=== PATIENT | female | born 2000 | race Caucasian/White ===

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

== ENCOUNTER → 2020-01-23 | Outpatient (CLI) | payer SELFPAY ==
[~2020-01-23] MED LIST changes: +VIST50CA PO
== END ==
LOC: M LABSMTC 09:27
PROVIDERS: ATTEND Pediatrics
DX: Z20.828 Contact with and (suspected) exposure to other viral communicable diseases (principal)

== ENCOUNTER → 2020-04-21 | Outpatient (CLI) | payer OTHER ==
[2020-04-21 15:29] LABS: HEMATOCRIT 36.4 % (36.0-47.0)
[2020-04-21 15:31] LABS: BASO # 0.1 10^3/uL (0.0-0.2); BASO % 0.9 % (0.0-1.0); EOS # 0.2 10^3/uL (0.0-0.5); EOS % 2.7 % (0.0-3.0); HEMATOCRIT 36.6 % (36.0-47.0); HEMOGLOBIN 12.1 g/dl (12.0-15.5); LYMPH # 2.1 10^3/uL (1.5-5.0); LYMPH % 31.3 % (24.0-44.0); MEAN CORPUSCULAR HEMOGLOBIN 30.6 pg (27.0-33.0); MEAN CORPUSCULAR HGB CONC 33.1 g/dl (32.0-36.5); MEAN CORPUSCULAR VOLUME 92.4 fl (80.0-96.0); MONO # 0.4 10^3/uL (0.0-0.8); MONO % 6.1 % (0.0-5.0); NEUTROPHILS # 3.9 10^3/uL (1.5-8.5); NEUTROPHILS % 58.8 % (36.0-66.0); PLATELET COUNT, AUTOMATED 228 10^3/uL (150-450); RED BLOOD COUNT 3.96 10^6/uL (4.00-5.40); WHITE BLOOD COUNT 6.6 10^3/uL (4.0-10.0)
[2020-04-21 15:47] LABS: HEMOGLOBIN A1c 4.9 %
[2020-04-21 16:03] LABS: CHOLESTEROL RISK RATIO 2.084 (<5)
--- NOTE | 2020-04-21 17:11 | REP ---
INDICATION: RIGHT CERVICAL LYMPHADENOPATHY COMPARISON: None. TECHNIQUE: PA/Lateral FINDINGS: Lungs: Clear, no infiltrate. Heart: Normal in size. Mediastinum: Mediastinal silhouette unremarkable. Pleural angles: Unremarkable.. Bones and soft tissues: Unremarkable. IMPRESSION: No acute pulmonary disease. <Electronically signed by Aries De La Cruz > 04/21/20 [id number]
--- NOTE | 2020-04-21 17:14 | REP ---
INDICATION: RIGHT CERVICAL LYPMPHADENOPATHY. COMPARISON: None. TECHNIQUE: Targeted soft tissue sonography of the right neck. FINDINGS: Scanning in the area the palpable abnormality in the right neck demonstrates a clustering of hypertrophied lymph nodes. Three lymph nodes are seen measures follows: 1.5 x 0.5 x 1.1, 1.5 x 0.5 x 1.2, and 1.0 by 0.7 x 1.2 cm respectively. These nodes are rather hypoechoic with cortical hypertrophy. IMPRESSION: Right cervical lymphadenopathy with a grouping of abnormal appearing hypertrophied lymph nodes. Depending on patient's clinical presentation, ultrasound-guided fine needle aspiration biopsy could be considered. Soft tissue neck CT study may provide more complete assessment of cervical lymph nodes. <Electronically signed by Galo Randle > 04/21/20 [id number]
== END ==
LOC: M RAD 14:50
PROVIDERS: ATTEND Physician Assistant Medical
DX: Z13.1 Encounter for screening for diabetes mellitus (principal); Z13.220 Encounter for screening for lipoid disorders; D64.9 Anemia, unspecified; R59.0 Localized enlarged lymph nodes

== ENCOUNTER → 2020-04-29 | Outpatient (CLI) | payer OTHER ==
--- NOTE | 2020-04-29 09:11 | REPVR ---
PROCEDURE INFORMATION: Exam: CT Neck Without Contrast Exam date and time: 04/29/2020 8:21 AM Age: 19 years old Clinical indication: Abnormal findings; Abnormal thyroid scan; Patient HX: PT denies TECHNIQUE: Imaging protocol: Computed tomography images of the neck without contrast. Radiation optimization: All CT scans at this facility use at least one of these dose optimization techniques: automated exposure control; mA and/or kV adjustment per patient size (includes targeted exams where dose is matched to clinical indication); or iterative reconstruction. COMPARISON: Thyroid, ST head+neck US 04/21/2020 3:32 PM FINDINGS: Nasopharynx: Unremarkable. Dental: Metallic beam hardening artifact from dental hardware limits evaluation in this region. Oropharynx: Unremarkable. No significant tonsillar enlargement. Hypopharynx: Unremarkable. Larynx: Unremarkable. Normal epiglottis. Retropharyngeal space: Unremarkable. Submandibular/Parotid glands: Normal. Glands are normal in size. Thyroid: Normal. No enlarged or calcified nodules. Lymph nodes: Examination again demonstrates a cluster of enlarged lymph nodes in the right supraclavicular region with the largest 1.7 x 1.2 x 0.7 cm in dimensions. Mildly enlarged level 1, level 2 and level 3 lymph nodes are also noted in the neck bilaterally. These are nonspecific and most likely reactive in etiology. The differential would include infectious mononucleosis, chronic infection, sarcoid, lymphoma and metastasis. Ultrasound-guided biopsy may be considered for further evaluation. Trachea: Visualized trachea is unremarkable. Lungs: Unremarkable as visualized. Bones/joints: The study is limited due to lack of intravenous contrast. Soft tissues: See "Lymph nodes" finding. IMPRESSION: 1. The study is limited due to lack of intravenous contrast. 2. Examination again demonstrates a cluster of enlarged lymph nodes in the right supraclavicular region with the largest 1.7 x 1.2 x 0.7 cm in dimensions. Mildly enlarged level 1, level 2 and level 3 lymph nodes are also noted in the neck bilaterally. These are nonspecific and most likely reactive in etiology. The differential would include infectious mononucleosis, chronic infection, sarcoid, lymphoma and metastasis. Ultrasound-guided biopsy may be considered for further evaluation. Electronically signed by: Irwin Henley On 04/29/2020 08:55:43 AM
== END ==
LOC: M RAD 08:11
PROVIDERS: ATTEND Physician Assistant Medical
DX: R59.0 Localized enlarged lymph nodes (principal)

== ENCOUNTER → 2020-05-10 | Outpatient (CLI) | payer OTHER ==
[~2020-05-10] MED LIST changes: +LIDOCAINE 1% MDV 20ML VIAL As Ordered ONE; +SODIUM BICARBONATE 8.4% INJ 50MEQ 50 ML VIAL As Ordered ONE
[2020-05-10 13:31] VITALS: BP 116/77
--- NOTE | 2020-05-10 16:53 | REP ---
INDICATION: LYMPHADENOPATHY OF RT CERVICAL REGION. COMPARISON: None. TECHNIQUE: The procedure was performed by Yesi Cortes [facility], under the direct supervision of Dr. De La Cruz. The risks and benefits of the procedure were explained to the patient and an informed consent was obtained both verbally and written. Directly prior to the start of the procedure a formal time-out was completed in the procedure room. FINDINGS: Using ultrasound guidance the cluster of supraclavicular lymph nodes that are palpable in the right neck were localized. The skin was prepped and draped in a sterile fashion. Five mL of buffered lidocaine was used as a local anesthetic. Using ultrasound guidance 8 fine needle aspirations were obtained using 25 gauge needles. Four specimens were sent to our lab here, and remaining 4 were sent out in RPMI solution, for further testing. The patient tolerated the procedure well and there were no immediate complications. After the appropriate amount of monitored convalescence the patient was discharged from the department. IMPRESSION: 1. Ultrasound-guided right supraclavicular lymph node biopsy. <Electronically signed by Yesi Cortes > 05/10/20 1400 <Electronically signed by Aries De La Cruz > 05/10/20 [id number]
== END ==
LOC: M IRPRO 12:37
PROVIDERS: ATTEND Physician Assistant Medical
DX: R59.0 Localized enlarged lymph nodes (principal)

== ENCOUNTER → 2020-05-11 | Outpatient (REF) | payer OTHER ==
[~2020-05-11] MED LIST changes: -LIDOCAINE 1% MDV 20ML VIAL As Ordered ONE; -SODIUM BICARBONATE 8.4% INJ 50MEQ 50 ML VIAL As Ordered ONE
[2020-05-11 17:39] LABS: BASO # 0.1 10^3/uL (0.0-0.2); EOS # 0.1 10^3/uL (0.0-0.5); EOS % 2.7 % (0.0-3.0); HEMOGLOBIN 12.6 g/dl (12.0-15.5); LYMPH # 1.8 10^3/uL (1.5-5.0); LYMPH % 33.9 % (24.0-44.0); MEAN CORPUSCULAR HEMOGLOBIN 30.1 pg (27.0-33.0); MEAN CORPUSCULAR HGB CONC 31.5 g/dl (32.0-36.5); MEAN CORPUSCULAR VOLUME 95.7 fl (80.0-96.0); MONO # 0.4 10^3/uL (0.0-0.8); MONO % 7.7 % (2.0-8.0); NEUTROPHILS # 2.8 10^3/uL (1.5-8.5); NEUTROPHILS % 54.3 % (36.0-66.0); PLATELET COUNT, AUTOMATED 247 10^3/uL (150-450); RED BLOOD COUNT 4.18 10^6/uL (4.00-5.40); WHITE BLOOD COUNT 5.2 10^3/uL (4.0-10.0)
[2020-05-11 18:12] LABS: ERYTHROCYTE SEDIMENTATION RATE 58 mm/hr (0-20)
== END ==
LOC: M SFHCPLAZ 14:48
PROVIDERS: ATTEND Physician Assistant Medical
DX: R59.0 Localized enlarged lymph nodes (principal)

== ENCOUNTER → 2020-05-19 | Outpatient (REF) | payer OTHER ==
[2020-05-19 13:19] LABS: C REACTIVE PROTEIN QUANTITATIV < 0.30 MG/DL (0.00-0.30)
[2020-05-19 13:23] LABS: MONO SCRN NEGATIVE (NEGATIVE)
== END ==
LOC: M SFHCPLAZ 11:36
PROVIDERS: ATTEND Physician Assistant Medical
DX: R59.0 Localized enlarged lymph nodes (principal)

== ENCOUNTER → 2020-07-08 | Outpatient (REF) | payer OTHER ==
[2020-07-08 14:09] LABS: BASO # 0.1 10^3/uL (0.0-0.2); BASO % 0.8 % (0.0-1.0); EOS # 0.2 10^3/uL (0.0-0.5); EOS % 2.9 % (0.0-3.0); HEMOGLOBIN 13.6 g/dl (12.0-15.5); LYMPH # 1.8 10^3/uL (1.5-5.0); LYMPH % 28.7 % (24.0-44.0); MEAN CORPUSCULAR HEMOGLOBIN 30.6 pg (27.0-33.0); MEAN CORPUSCULAR HGB CONC 32.4 g/dl (32.0-36.5); MEAN CORPUSCULAR VOLUME 94.6 fl (80.0-96.0); MONO # 0.4 10^3/uL (0.0-0.8); MONO % 5.6 % (2.0-8.0); NEUTROPHILS # 3.8 10^3/uL (1.5-8.5); NEUTROPHILS % 61.7 % (36.0-66.0); PLATELET COUNT, AUTOMATED 220 10^3/uL (150-450); RED BLOOD COUNT 4.44 10^6/uL (4.00-5.40); WHITE BLOOD COUNT 6.2 10^3/uL (4.0-10.0)
[2020-07-08 14:41] LABS: ERYTHROCYTE SEDIMENTATION RATE 12 mm/hr (0-20)
[2020-07-08 15:20] LABS: HIV 1&2 SCREEN CENTAUR NEGATIVE (NEGATIVE)
== END ==
LOC: M PLALAB 12:50
PROVIDERS: ATTEND Physician Assistant Medical
DX: R59.0 Localized enlarged lymph nodes (principal)

== ENCOUNTER → 2021-06-28 | Outpatient (CLI) | payer OTHER ==
[2021-06-28 13:17] LABS: BASO # 0.1 10^3/uL (0.0-0.2); BASO % 0.8 % (0.0-1.0); EOS # 0.1 10^3/uL (0.0-0.5); EOS % 1.7 % (0.0-3.0); HEMATOCRIT 40.8 % (36.0-47.0); HEMOGLOBIN 13.3 g/dl (12.0-15.5); LYMPH # 2.2 10^3/uL (1.5-5.0); LYMPH % 33.2 % (24.0-44.0); MEAN CORPUSCULAR HEMOGLOBIN 30.9 pg (27.0-33.0); MEAN CORPUSCULAR HGB CONC 32.6 g/dl (32.0-36.5); MEAN CORPUSCULAR VOLUME 94.7 fl (80.0-96.0); MONO # 0.5 10^3/uL (0.0-0.8); MONO % 7.7 % (2.0-8.0); NEUTROPHILS # 3.7 10^3/uL (1.5-8.5); NEUTROPHILS % 56.4 % (36.0-66.0); PLATELET COUNT, AUTOMATED 257 10^3/uL (150-450); RED BLOOD COUNT 4.31 10^6/uL (4.00-5.40); WHITE BLOOD COUNT 6.5 10^3/uL (4.0-10.0)
[2021-06-28 14:03] LABS: ALBUMIN 4.1 GM/DL (3.2-5.2); ALT/SGPT 23 U/L (12-78); BILIRUBIN,TOTAL 0.8 MG/DL (0.2-1.0); BLOOD UREA NITROGEN 10 MG/DL (7-18); CALCIUM LEVEL 9.8 MG/DL (8.5-10.1); CARBON DIOXIDE LEVEL 29 MEQ/L (21-32); CHLORIDE LEVEL 105 MEQ/L (98-107); CREATININE FOR GFR 0.61 MG/DL (0.55-1.30); GLUCOSE, FASTING 72 MG/DL (70-100); SODIUM LEVEL 139 MEQ/L (136-145); TOTAL PROTEIN 7.5 GM/DL (6.4-8.2)
[2021-06-28 14:04] LABS: ERYTHROCYTE SEDIMENTATION RATE 11 mm/hr (0-20)
[2021-06-28 17:18] LABS: HIV 1&2 SCREEN CENTAUR NEGATIVE (NEGATIVE)
== END ==
LOC: M PLALAB 12:06
PROVIDERS: ATTEND Physician Assistant Medical
DX: R59.0 Localized enlarged lymph nodes (principal)

== ENCOUNTER 2021-07-16 21:23 | Emergency (ER) | payer OTHER ==
[~2021-07-16] VITALS: Ht 162.6 cm; Wt 50.8 kg
[2021-07-16 21:23] VITALS: BP 130/81
[2021-07-16] MEDS ORDERED: AMOX875T2 PO (21:34)
[2021-07-16] MEDS ORDERED: IBUP1TAB5 PO (21:37)
== END 2021-07-17 00:48 | disposition left against medical advice (07) ==
LOC: M ED 21:23
DX: Z53.21 Procedure and treatment not carried out due to patient leaving prior to being seen by health care provider (principal)

== ENCOUNTER → 2021-07-21 | Outpatient (CLI) | payer OTHER ==
[~2021-07-21] MED LIST changes: +AMOX875T2 PO; +IBUP1TAB5 PO; +ISOVUE-370 76% 100ML VIAL As Ordered ONE
== END ==
LOC: M RAD 12:58
PROVIDERS: ATTEND Physician Assistant Medical
DX: R59.0 Localized enlarged lymph nodes (principal)
CPT/HCPCS: 70491; Q9967